=== PATIENT | male | born 1975 | race African-American/Black ===

== ENCOUNTER 2019-06-02 10:17 | Emergency (ER) | payer BC ==
[2019-06-02] MEDS ORDERED: methylPREDNISolone Sod Succ/PF 125 MG/2 ML VIAL ONE ×2 (10:40→10:42)
[2019-06-02] MEDS ORDERED: Famotidine/PF 20 mg/2ml Vial ONE (10:40)
[2019-06-02] MEDS ORDERED: Ketorolac Tromethamine 30 MG/ML VIAL ONE (11:07)
== END 2019-06-02 12:19 | disposition home or self-care (01) ==
LOC: SCSER 10:17
DX: I88.9 Nonspecific lymphadenitis, unspecified (principal); T78.40XA Allergy, unspecified, initial encounter; F17.210 Nicotine dependence, cigarettes, uncomplicated
CPT/HCPCS: 93005; 96361; 96374; 96375; J1885; J2930; S0028